=== PATIENT | male | born 1965 | race Caucasian/White ===

== ENCOUNTER 2023-11-19 06:03 | Day surgery (SDC) | payer BC ==
[2023-11-19] MEDS: Lactated Ringers 1,000 ML IV SCH (06:13)
[2023-11-19] MEDS ORDERED: DIPRIVAN 200 MG/20 ML IV ONE ×3 (07:28→07:55)
[2023-11-19] MEDS ORDERED: Xylocaine-Mpf 2% 5 Ml Vial ONE (07:28)
[2023-11-19] MEDS ORDERED: Versed 2 MG/2 ML Injection ONE (07:28)
[2023-11-19] MEDS ORDERED: Lactated Ringers 1,000 ML IV ONE (08:04)
[2023-11-19 08:36] VITALS: O2SAT 97
[2023-11-19 08:43] VITALS: BP 138/89; PULSE 55; RESP 18; TEMP 97.5
--- NOTE | 2023-11-20 10:36 | OP ---
SURGERY DATE/TIME: 11/19/2023 1190 - [id number] PREOPERATIVE DIAGNOSIS: History of colon polyps and a strong family history of colon cancer. POSTOPERATIVE DIAGNOSIS: Sigmoid diverticulosis. Otherwise, normal colon. Unfortunate poor prep. PROCEDURE: Colonoscopy. SURGEON: Pedro Rosen MD. ANESTHESIA: Medications given by the Anesthesia department. INDICATIONS: The patient is a 58-year-old white male patient with a strong family history of colon cancers in multiple family members. The patient does have a previous history of having colon polyps. He could not remember how long it had been since his previous examination. The patient was apprised of the risks of the procedure, the risk of perforation, phlebitis, untoward reaction to medication, bleeding, and missed lesions. The patient verbalized his understanding and desired to have the procedure performed. DESCRIPTION OF PROCEDURE AND FINDINGS: The patient was given medication by the anesthesia department. He had continuous pulse oximetry, ECG monitoring, and intermittent blood pressure monitoring during the examination. He was placed in left lateral decubitus position. Digital rectal examination was performed and revealed normal anal sphincter tone, no masses, and a normal prostate. The flexible Olympus videocolonoscope was used to intubate the rectum. A view of the colon was developed sequentially to the cecum. Upon insertion and withdrawal including retroflexion in the rectum, there was noted to be places of some semi-solid stool. We were able to achieve evaluation of at least 90% to 95% of the colon mucosa despite the poor prep. The patient did have some moderate sigmoid diverticulosis but otherwise no other mucosal lesions were encountered. The scope was removed. The patient tolerated the procedure well and was sent back to outpatient recovery in good condition.
== END 2023-11-19 08:55 | disposition home or self-care (01) ==
LOC: SDC 06:03
PROVIDERS: ATTEND Family Medicine
DX: Z09 Encounter for follow-up examination after completed treatment for conditions other than malignant neoplasm (principal); Z86.010 Personal history of colon polyps; Z80.0 Family history of malignant neoplasm of digestive organs; K57.30 Diverticulosis of large intestine without perforation or abscess without bleeding
CPT/HCPCS: J2250; J2704